=== PATIENT | male | born 1985 | race Caucasian/White ===

== ENCOUNTER 2019-05-18 18:04 | Emergency (ER) | payer OTHER, SELFPAY ==
[2019-05-18 18:16] VITALS: BP 139/91; PULSE 77; RESP 20; TEMP 37.6; O2SAT 97
--- NOTE | 2019-05-18 18:24 | ED.URI ---
HPI - URI/Sore Throat General Chief Complaint: Upper Respiratory Infection Stated Complaint: cough/diarrhea/nausea Time Seen by Provider: 05/18/19 18:24 Source: patient Mode of arrival: ambulatory Limitations: no limitations History of Present Illness HPI Narrative: Fracisco Barrientos is a 33 yo male with no PMH who comes here with diarrhea and ear popping and low grade fever since Sunday. Finished a Zpack and Tessalon Perles given on 05/05 . Related Data Allergies Allergy/AdvReac Type Severity Reaction Status Date / Time lisinopril AdvReac Cough Verified 05/18/19 18:21 Review of Systems Review of Systems: Narrative: CONSTITUTIONAL: Low-grade fever, chills, sweats. EYES: Denies visual changes, redness, discharge. ENT: Denies rhinorrhea, congestion, sore throat, otalgia. CARDIOVASCULAR: Denies chest pain, palpitations, edema. RESPIRATORY: Denies dyspnea, wheezing, cough GASTROINTESTINAL: has abdominal pain, no nausea, vomiting, has diarrhea.8-10 times/day GENITOURINARY: Denies dysuria, hematuria, abnormal discharge SKIN: Denies rash or itching. NEUROLOGIC: Denies numbness, or focal weakness. PSYCHIATRIC: Denies anxiety or depression. PMFSH Family History Family History Other Hypertension Social History Social History (Updated 05/18/19 @ 18:41 by Sapphire Austin CNP) Smoking status: Current every day smoker Tobacco type: e-cigarettes Alcohol intake: current Comments At time of signature, I agree with nursing past medical, surgical, social and family history. There is no relevant family history pertinent to the presenting complaint. Exam Narrative: Exam Narrative: GENERAL: This is a well-nourished, well-developed patient, in no apparent distress. HEAD: normocephalic, atraumatic. EYES: PERRL. Sclera clear/white. Vision is grossly intact. EARS: External ears normal, . Hearing grossly intact. Right ear erythema, mild effusion NOSE: External nose normal with no obvious nasal discharge, nares without redness, no rhinorrhea. THROAT: Mucous membranes moist, posterior pharynx erythema NECK: Neck supple, non-tender without lymphadenopathy, CARDIOVASCULAR: Regular rate and rhythm without murmurs, gallops, or rubs. RESPIRATORY: Clear to auscultation. Breath sounds equal bilaterally. No wheezes, rales, or rhonchi. GASTROINTESTINAL: Abdomen soft, non-tender, nondistended. Bowel sounds are active. SKIN: warm, intact with no suspicious lesions or rash, good texture and turgor. NEURO: awake, alert, and oriented to person, place and time. There were no obvious focal neurologic abnormalities. Steady gait EXTREMITIES: Normal range of motion. No edema. BACK: Nontender without deformity Course Course Emergency Course: Flu swab negative Started on Claritin and neomycin HC eardrops Vital Signs Vital signs: Vital Signs Temperature 99.7 F H 05/18/19 18:16 Pulse Rate 77 05/18/19 18:16 Respiratory Rate 20 05/18/19 18:16 Blood Pressure 139/91 H 05/18/19 18:16 Pulse Oximetry 97 05/18/19 18:16 Temperature 99.7 F H 05/18/19 18:16 Pulse Rate 77 05/18/19 18:16 Respiratory Rate 20 05/18/19 18:16 Blood Pressure 139/91 H 05/18/19 18:16 Pulse Oximetry 97 05/18/19 18:16 MDM - URI/Sore Throat Differential Diagnosis Differential diagnosis: Likely upper respiratory infection, viral infection, influenza and other Lab Data Labs: Influenza A Screen Negative Reference Range: Negative Influenza B Screen Negative Reference Range: Negative Discharge Plan Discharge Clinical Impression: Gastroenteritis, Ear pain, right Diarrhea Qualifiers: Diarrhea type: unspecified type Qualified Code(s): R19.7 - Diarrhea, unspecified Patient Disposition: Home, Self-Care Condition: Stable Instructions: Antibiotic Form, Gastroenteritis (DC) Prescriptions: New loratadine [Claritin] 10 mg tabl
== END 2019-05-18 18:54 | disposition home or self-care (01) ==
PROVIDERS: Emergency Provider Nurse Practitioner; PCP Nurse Practitioner Family
DX: K52.9 Noninfective gastroenteritis and colitis, unspecified (principal); H92.01 Otalgia, right ear; F17.200 Nicotine dependence, unspecified, uncomplicated
CPT/HCPCS: 87804; 99213; G0463

== ENCOUNTER → 2020-12-23 02:43 | Outpatient (CLI) | payer OTHER, SELFPAY ==
[2020-12-23 16:56] LABS: SARS-CoV-2 RNA PCR Negative
== END ==
PROVIDERS: PCP Nurse Practitioner Family; Visit Provider Nurse Practitioner Family
DX: R05 Cough (principal); Z20.822 Contact with and (suspected) exposure to COVID-19
CPT/HCPCS: C9803; U0003; U0005

== ENCOUNTER 2022-12-22 17:09 | Emergency (ER) | payer OTHER, SELFPAY ==
[2022-12-22 17:24] VITALS: BP 172/108; PULSE 88; RESP 18; TEMP 36.5; O2SAT 96
--- NOTE | 2022-12-22 17:24 | ED.GENADULT ---
HPI - General Adult General Chief complaint: Extremity Injury, Lower Stated complaint: lt knee pain Time Seen by Provider: 12/22/22 17:24 Source: patient, RN notes reviewed and old records reviewed Mode of arrival: ambulatory Limitations: no limitations History of Present Illness HPI narrative: 37-year-old male presents to the [facility] with complaints of left knee pain for 3 days. States he has a history of gout knee in that knee, has not followed. States that he normally takes a Medrol Dosepak States that he does take allopurinol and losartan intermittently, not on a daily basis. Educated patient that post medications need to be taken daily at the same time. Discussed risks not controlling blood pressure with patient. Onset (ago): day(s) (3) Related Data Home Medications Medication Instructions Recorded Confirmed allopurinol 100 mg tablet 100 mg DIRECTED 12/22/22 12/22/22 losartan 100 mg tablet 100 mg DIRECTED 12/22/22 12/22/22 Allergies Allergy/AdvReac Type Severity Reaction Status Date / Time indomethacin Allergy Intermediate Hives Verified 12/22/22 17:30 lisinopril AdvReac Mild Cough Verified 12/22/22 17:30 Review of Systems Review of Systems: All systems reviewed & are unremarkable except as noted in HPI and below Constitutional: Constitutional: Reports no additional constitutional complaints Eyes: Eyes: Reports no additional eye complaints ENT: Reports system reviewed and no additional complaints, except as documented Cardiovascular: Cardiovascular: Reports no additional cardiovascular complaints, Denies chest pain and Denies dyspnea Respiratory: Respiratory: Reports no additional respiratory complaints, Denies chest congestion, Denies cough and Denies dyspnea Gastrointestinal: Gastrointestinal: Reports no additional gastrointestinal complaints, Denies abdominal pain, Denies nausea and Denies vomiting Musculoskeletal: Musculoskeletal: Reports as per HPI, Reports arthralgias and Reports joint swelling Integumentary/Breasts: Skin/Breast: Reports system reviewed and no additional complaints, except as docu Neurologic: Reports system reviewed and no additional complaints, except as documented Psychiatric: Psychiatric: Reports no additional psychiatric complaints Allergic/Immunologic: Allergic/Immunologic: Reports no additional allergic/immunologic complaints [facility] Past Medical History Medical History (Updated 12/23/22 @ 18:16 by Emi Membreno APRN) Hypertension Family History Family History Other Hypertension Social History Social History Smoking status: Current every day smoker Tobacco type: e-cigarettes/vaping Alcohol intake: current Comments At the time of my signature, I reviewed and agree with the nursing past medical, surgical, social, and family history. There is no relevant family history pertinent to the patient complaint. Exam Const: General: cooperative, healthy appearing, comfortable, no acute distress, well developed, alert and well nourished Nutritional Appearance: well nourished and obese morbidly obese Orientation/consciousness: patient oriented x3 Limitations: no limitations HENMT: Head: normal to inspection Ears: hearing grossly normal bilaterally and external ears normal Face/Nose/Sinus: Normal external nose present, Normal nares present, Normal nasal mucous membranes and turbinates present, normal facial exam and face symmetric Face and sinus: normal facial exam and face symmetric Eyes: General: appearance normal, both eyes and all related structures Alignment and Position: alignment normal Periorbital: periorbital findings normal Pupils: Equal, round and reactive pupils present EOM: EOMs intact bilaterally Neck: Neck: normal visual inspection, full ROM, no lymphadenopathy and no meningeal signs Chest: Chest palpation & inspection: normal i
== END 2022-12-22 17:45 | disposition home or self-care (01) ==
PROVIDERS: Emergency Provider Nurse Practitioner; PCP Nurse Practitioner Family
DX: M25.562 Pain in left knee (principal); I10 Essential (primary) hypertension; F17.219 Nicotine dependence, cigarettes, with unspecified nicotine-induced disorders; Z79.899 Other long term (current) drug therapy
CPT/HCPCS: 99213; G0463